=== PATIENT | male | born 1990 | race Caucasian/White ===

== ENCOUNTER 2017-01-11 13:19 | Outpatient (CLI) | payer BC ==
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
== END 2017-01-11 13:20 | disposition home or self-care (01) ==
LOC: TBSIIMAG 13:19
PROVIDERS: ATTEND Neurological Surgery
DX: M54.2 Cervicalgia (principal); M54.9 Dorsalgia, unspecified; M48.8X2 Other specified spondylopathies, cervical region
CPT/HCPCS: 72040; 72070

== ENCOUNTER 2017-02-07 13:55 | Outpatient (CLI) | payer OTHER ==
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
== END 2017-02-07 13:56 | disposition home or self-care (01) ==
LOC: TBSIIMAG 13:55
PROVIDERS: ATTEND Neurological Surgery
DX: S12.9XXA Fracture of neck, unspecified, initial encounter (principal)
CPT/HCPCS: 72040; 72072

== ENCOUNTER 2017-03-06 13:47 | Outpatient (CLI) | payer OTHER ==
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
== END 2017-03-06 13:48 | disposition home or self-care (01) ==
LOC: TBSIIMAG 13:47
PROVIDERS: ATTEND Neurological Surgery
DX: S12.9XXA Fracture of neck, unspecified, initial encounter (principal)
CPT/HCPCS: 72040; 72072